=== PATIENT | female | born 1995 | race Caucasian/White ===

== ENCOUNTER 2019-03-21 14:37 | Emergency (ER) | payer BC, OTHER ==
[~2019-03-21] VITALS: Ht 175 cm; Wt 65.2 kg
[2019-03-21] MEDS ORDERED: KETOROLAC 30 MG/ML VIAL IVP STA (14:52)
[2019-03-21] MEDS ORDERED: NS IV 1000 ML 1,000 ML IV STA (14:52)
--- NOTE | 2019-03-21 14:52 | ED Abdominal Pain ---
General Stated Complaint: ABD PAIN Source of Information: Patient Exam Limitations: No Limitations History of Present Illness Date Seen by Provider: Mar 21, 2019 Time Seen by Provider: 14:50 Initial Comments 23-year-old female presents with abdominal pain that started earlier this today couple hours ago. Pain started in her. Umbilical region has now her lower abdomen is a little bit greater on the left than the right. Patient reports she felt nauseated but has not vomited. Her last bowel movement was yesterday and was normal. Denies any vomiting or diarrhea. She denies any fevers chills cough or other systemic complaints. The pain now is in the bilateral lower quadrants. She reports she has an Implanon and does not have periods. Allergies and Home Medications Allergies Coded Allergies: No Known Drug Allergies (Unverified , 03/21/19) Home Medications Ciprofloxacin HCl 500 Mg Tablet, 500 MG PO BID Prescribed by: ADEN LO on 03/21/19 8509 Patient Home Medication List Home Medication List Reviewed: Yes Review of Systems Review of Systems Constitutional: No chills, No fever Respiratory: Denies Cough, Denies Shortness of Air Cardiovascular: Denies Chest Pain, Denies Palpitations Gastrointestinal: Abdominal Pain; Denies Constipated, Denies Diarrhea; Nausea; Denies Poor Appetite, Denies Poor Fluid Intake, Denies Vomiting Genitourinary: Denies Burning, Denies Frequency, Denies Flank Pain Musculoskeletal: no symptoms reported Skin: no symptoms reported Past Qcsftor-Ygsqxw-Rpamne Hx Past Med/Social Hx: Reviewed Nursing Past Med/Soc Hx Physical Exam Vital Signs Vital Signs - First Documented 03/21/19 14:54 Temp 36.3 Pulse 79 Resp 16 B/P (MAP) 135/79 (97) Pulse Ox 99 Capillary Refill : Height/Weight/BMI Height: '" Weight: lbs. oz. kg; BMI Method: General Appearance: other (uncomfortable) HEENT: PERRL/EOMI Neck: full range of motion, supple Respiratory: lungs clear, normal breath sounds Cardiovascular: normal peripheral pulses, regular rate, rhythm, no edema Gastrointestinal: soft; No guarding; tenderness (lower abdomen left greater than right) Extremities: normal range of motion, non-tender Back: no CVA tenderness Neurologic/Psychiatric: organizational effectiveness consultant II-XII nml as tested, no motor/sensory deficits, alert, normal mood/affect, oriented x 3 Skin: normal color Progress/Results/Core Measures Results/Orders Lab Results Laboratory Tests Test 03/21/19 14:40 03/21/19 15:00 Range/Units Urine Color YELLOW Urine Clarity CLOUDY Urine pH 8.5 5-9 Urine Specific [place] 1.020 1.016-1.022 Urine Protein NEGATIVE NEGATIVE Urine Glucose (UA) NEGATIVE NEGATIVE Urine Ketones NEGATIVE NEGATIVE Urine Nitrite NEGATIVE NEGATIVE Urine Bilirubin NEGATIVE NEGATIVE Urine Urobilinogen 0.2 < = 1.0 MG/DL Urine Leukocyte Esterase TRACE H NEGATIVE Urine RBC (Auto) 2+ H NEGATIVE Urine RBC 0-2 /HPF Urine WBC 5-10 H /HPF Urine Squamous Epithelial Cells 5-10 /HPF Urine Crystals NONE /LPF Urine Bacteria LARGE H /HPF Urine Casts NONE /LPF Urine Mucus SMALL H /LPF Urine Culture Indicated YES Urine Test NEGATIVE NEGATIVE White Blood Count 8.8 4.3-11.0 10^3/uL Red Blood Count 4.94 4.35-5.85 10^6/uL Hemoglobin 14.8 11.5-16.0 G/DL Hematocrit 45 35-52 % Mean Corpuscular Volume 90 80-99 FL Mean Corpuscular Hemoglobin 30 25-34 PG Mean Corpuscular Hemoglobin Concent 33 32-36 G/DL Red Cell Distribution Width 12.1 10.0-14.5 % Platelet Count 257 130-400 10^3/uL Mean Platelet Volume 9.3 7.4-10.4 FL Neutrophils (%) (Auto) 61 42-75 % Lymphocytes (%) (Auto) 23 12-44 % Monocytes (%) (Auto) 9 0-12 % Eosinophils (%) (Auto) 6 0-10 % Basophils (%) (Auto) 1 0-10 % Neutrophils # (Auto) 5.4 1.8-7.8 X 10^3 Lymphocytes # (Auto) 2.0 1.0-4.0 X 10^3 Monocytes # (Auto) 0.8 0.0-1.0 X 10^3 Eosinophils # (Auto) 0.5 H 0.0-0.3 10^3/uL Basophils # (Auto) 0.0 0.0-0.1 10^3/uL Sodium Level 145 135-145 MMOL/L Potassium Level 4.1 3.6-5.0 MMOL/L Chloride Level 108 H 98-107 MMOL/L Carbon Dioxide Level 24 21-32 MMOL/L Anion Gap 13 5-14 MMOL/L Blood Urea Nitrogen 12 7-18 MG/DL Creatinine 0.70 0.60-1.30 MG/DL Estimat Glomerular Filtration Rate > 60 BUN/Creatinine Ratio 17 Glucose Level 81 70-105 MG/DL Calcium Level 9.7 8.5-10.1 MG/DL Corrected Calcium 8.5-10.1 MG/DL Total Bilirubin 0.7 0.1-1.0 MG/DL Aspartate Amino Transf (AST/SGOT) 22 5-34 U/L Alanine Aminotransferase (ALT/SGPT) 23 0-55 U/L Alkaline Phosphatase 61 40-136 U/L C-Reactive Protein 0.03 <0.50 MG/DL Total Protein 7.6 6.4-8.2 GM/DL Albumin 4.8 H 3.2-4.5 GM/DL Lipase 28 8-78 U/L My Orders Orders - LO,ADEN L DO Cbc With Automated Diff (03/21/19 14:52) Comprehensive Metabolic Panel (03/21/19 14:52) Hcg,Qualitative Urine (03/21/19 14:52) Lipase (03/21/19 14:52) Ua Culture If Indicated (03/21/19 14:52) Crp Fs (03/21/19 14:52) Ns Iv 1000 Ml (Sodium Chloride 0.9%) (03/21/19 14:52) Ed Iv/Invasive Line Start (03/21/19 14:52) Ketorolac Injection (Toradol Injection) (03/21/19 14:52) Abdomen Flat & Upright/Decub (03/21/19 14:52) Ondansetron Injection (Zofran Injectio (03/21/19 15:15) Urine Culture (03/21/19 14:40) Phenazopyridine Tablet (Pyridium Tablet) (03/21/19 15:30) Medications Given in ED Current Medications Medications Dose Ordered Sig/Luisa Route Start Time Stop Time Status Last Admin Dose Admin Ondansetron HCl 4 mg ONCE ONCE IVP 03/21/19 15:15 03/21/19 15:16 DC 03/21/19 15:15 4 MG Vital Signs/I&O 03/21/19 14:54 Temp 36.3 Pulse 79 Resp 16 B/P (MAP) 135/79 (97) Pulse Ox 99 Departure Impression Primary Impression: Urinary tract infection Qualified Codes: N30.01 - Acute cystitis with hematuria Disposition: HOME, SELF-CARE Condition: Stable Departure-Patient Inst. Referrals: NO,LOCAL PHYSICIAN (PCP) Primary Care Physician Patient Instructions: Urinary Tract Infection, Adult (DC) Add. Discharge Instructions: Emergency department focuses on treating and ruling out life-threatening diseases. Whenever possible, a diagnosis is given. However, most patients are given an impression based on their history, physical exam, and workup during your brief time in the ER. Information about probable diagnosis and other educational material has been provided. Please take the time to read and understand this information. It is very important that you follow up with a physician as discussed during the visit today. Failure to adhere to your follow-up instructions may lead to severe disability, injury, or so please make sure to keep your appointments or obtain one as requested. Please keep in mind the emergency department is not designed to your primary care or "family doctor" and nonurgent issues are best evaluated by an outpatient physician Scripts Ciprofloxacin HCl (Ciprofloxacin HCl) 500 Mg Tablet 500 MG PO BID, #14 TAB Prov: ADEN LO DO 03/21/19 ADEN LO DO Mar 21, 2019 14:52
[2019-03-21 15:07] LABS: BILIRUBIN,URINE NEGATIVE (NEGATIVE); CLARITY,URINE CLOUDY; COLOR,URINE YELLOW; GLUCOSE, URINE (UA) NEGATIVE (NEGATIVE); KETONES,URINE NEGATIVE (NEGATIVE); LEUKOCYTE ESTERASE ,URINE TRACE (NEGATIVE); NITRITE,URINE NEGATIVE (NEGATIVE); PH,URINE 8.5 (5-9); PROTEIN,URINE NEGATIVE (NEGATIVE); RBC,URINE 0-2 /HPF
[2019-03-21 15:08] LABS: BACTERIA,URINE LARGE /HPF
[2019-03-21] MEDS ORDERED: ONDANSETRON 4 MG/2 ML (SDV) Z0FRAN IVP ONE (15:15)
[2019-03-21 15:17] LABS: HEMOGLOBIN 14.8 G/DL (11.5-16.0); MEAN CORPUSCULAR HEMOGLOBIN 30 PG (25-34); WHITE BLOOD COUNT 8.8 10^3/uL (4.3-11.0)
[2019-03-21 15:18] LABS: HEMATOCRIT 45 % (35-52); MEAN CORPUSCULAR HGB CONC 33 G/DL (32-36); MEAN CORPUSCULAR VOLUME 90 FL (80-99); MEAN PLATELET VOLUME 9.3 FL (7.4-10.4); PLATELET COUNT 257 10^3/uL (130-400); RED CELL DISTRIBUTION WIDTH 12.1 % (10.0-14.5)
[2019-03-21 15:19] LABS: BASOPHILS % (AUTO) 1 % (0-10); EOSINOPHILS # (AUTO) 0.5 10^3/uL (0.0-0.3); EOSINOPHILS % (AUTO) 6 % (0-10); LYMPHOCYTES % (AUTO) 23 % (12-44); MONOCYTES # (AUTO) 0.8 X 10^3 (0.0-1.0); MONOCYTES % (AUTO) 9 % (0-12); NEUTROPHILS # (AUTO) 5.4 X 10^3 (1.8-7.8); NEUTROPHILS % (AUTO) 61 % (42-75)
[2019-03-21] MEDS ORDERED: PHENAZOPYRIDINE 100 MG (PYRIDIUM) TABLET PO ONE (15:30)
--- NOTE | 2019-03-21 15:30 | Diagnostic Imaging Report ---
HISTORY: Lower abdominal pain, nausea. COMPARISON: None FINDINGS: Supine and upright frontal views of the abdomen were performed. No dilated loops of small bowel are seen. There is no large collection of free air. A small amount of stool is seen in the colon. IMPRESSION: 1. No bowel obstruction or large collection of free air. Dictated by: Dictated on workstation # [id number]
[2019-03-21 15:34] LABS: CHLORIDE 108 MMOL/L (98-107); POTASSIUM 4.1 MMOL/L (3.6-5.0); SODIUM 145 MMOL/L (135-145)
[2019-03-21 15:35] LABS: ALANINE AMINOTRANSFERASE 23 U/L (0-55); ALBUMIN 4.8 GM/DL (3.2-4.5); ALKALINE PHOSPHATASE 61 U/L (40-136); BILIRUBIN,TOTAL 0.7 MG/DL (0.1-1.0); BUN/CREATININE RATIO 17; CALCIUM 9.7 MG/DL (8.5-10.1); CARBON DIOXIDE 24 MMOL/L (21-32); GFR ESTIMATED > 60; GLUCOSE 81 MG/DL (70-105); TOTAL PROTEIN 7.6 GM/DL (6.4-8.2)
[2019-03-21 15:36] LABS: LIPASE 28 U/L (8-78)
[2019-03-21] MEDS ORDERED: CIPR500T4 PO (15:43)
[2019-03-21 15:59] VITALS: BP 109/68
== END 2019-03-21 15:59 | disposition home or self-care (01) ==
LOC: ER FS 14:39
DX: N39.0 Urinary tract infection, site not specified (principal)
CPT/HCPCS: 36415; 74019; 80053; 81000; 83690; 84703; 85025; 86141; 87088